=== PATIENT | male | born 1950 | race Caucasian/White ===

== ENCOUNTER 2018-01-30 22:47 | Emergency (ER) | payer MEDICARE, MEDICAID ==
[~2018-01-30] VITALS: Ht 177.8 cm; Wt 104.3 kg
[~2018-01-30 22:47] MED LIST: AMIO200T4 PO; ASPI-605 PO; ATOR20TA PO; BACL10TA PO; CARI350T27 PO; CLOP75TA15 PO; ETOMIDATE 2 MG/ML VIAL IV ONE; ROCURONIUM BROMIDE 50 MG/5 ML IV ONE
--- NOTE | 2018-01-30 22:57 | NUR ---
BAGGING IN PROGRESS
--- NOTE | 2018-01-30 22:57 | NUR ---
DR. Mosley IS AT THE BEDSIDE WITH RT. INTUBATING PT
--- NOTE | 2018-01-30 22:57 | NUR ---
PT BIB [facility] WITH A C/O AMS. PT WAS CHAIN WORLEY BREATHING, PALE PALOR, RESP APPROX 22. PT IS ON NRB @15L. PT IS SAT 99%. DR Mosley IS AT THE BEDSIDE.
--- NOTE | 2018-01-30 22:58 | NUR ---
PT PLACED ON THE VENT WITH THE FOLLOWING SETTINGS: AC16, TV500, FIO2 100%.
--- NOTE | 2018-01-30 22:58 | NUR ---
PT INTUBATED. 20 @ THE LIP & 7.5 ETT.
--- NOTE | 2018-01-30 22:58 | NUR ---
HEALTH SUPPORT SPECIALIST AT THE BEDSIDE NOT ABLE TO GET BLOOD.
[2018-01-30] MEDS ORDERED: PROPOFOL 100 ML ONE (22:59)
--- NOTE | 2018-01-30 23:00 | NUR ---
PROPOFOL STARTED AT 5 MCG/MIN.
--- NOTE | 2018-01-30 23:00 | NUR ---
CALLED NURSING SUP. FOR ICU BED
--- NOTE | 2018-01-30 23:05 | NUR ---
PT IS DESATING ON THE VENT. RT CALLED AND DR. Mosley IS AT THE BEDSIDE. PEEP INCREASED TO 5 BY .
[2018-01-30 23:10] VITALS: BP 91/41
--- NOTE | 2018-01-30 23:10 | NUR ---
EMBOSSING CLERK IS STILL AT THE BEDSIDE TRYING TO DRAW BLOOD.
--- NOTE | 2018-01-30 23:12 | NUR ---
PT HAS ARRHYTHMIA - WIDE COMPLEX. DR Mosley AT BEDSIDE. PT PLACED ON PADS AND CRASH CART AT THE BEDSIDE.
--- NOTE | 2018-01-30 23:12 | NUR ---
DR MIKE AT THE BEDSIDE.
[2018-01-30 23:15] VITALS: BP 97/61
--- NOTE | 2018-01-30 23:22 | NUR ---
CXR DONE AT THE BEDSIDE.
[2018-01-30] MEDS ORDERED: ETOMIDATE 2 MG/ML VIAL IV ONE (23:30)
[2018-01-30] MEDS ORDERED: ROCURONIUM BROMIDE 50 MG/5 ML IV ONE (23:30)
[2018-01-30] MEDS ORDERED: VANCOMYCIN 1 GM in IV D5W 250 ML IV ONE (23:30)
[2018-01-30] MEDS ORDERED: PIPERACILLIN /TAZOBACTAM 3.375 G in IV D5W 50 ML IV ONE (23:30)
--- NOTE | 2018-01-30 23:30 | NUR ---
CODING PT. 2331 - EPI AND BICARB GIVEN 2332 - PULSE CHECK - NO PULSE PEA 2332 - COMPRESSIONS RESUMED 2333 - DR Mosley CHARGING 200J 2334- PULSE CHECK - VFIB 2334 - CLEARED BED, 200J SHOCK DELIVERED BY DR. Mosley 2334 - COMPRESSIONS RESUMED 2334 - EPI GIVEN 2335 - BICARB GIVEN 2335 - CALCIUM CHLORIDE GIVEN 2336 - PULSE CHECK - PT HAS PULSE - ST VITAL SIGNS: BP - 105/75, HR - 121, RESP 19, O2 SAT 78%. (BAGGING IN PROGRESS) 2339 - PEA NOTED. CPR RESUMED. 234- PULSE CHECK - PEA 234 - COMPRESSIONS RESUMED 2342 - EPI GIVEN 2343 PULSE CHECK - NO PULSE DR. Mosley IS USING THE US TO CHECK CARDIAC FUNCTION. NO FUNCTION NOTED.
--- NOTE | 2018-01-30 23:30 | NUR ---
PT GOING BRADT AT 34. NO PULSE NOTED. CPR STARTED. DR. Mosley IS AT THE BEDSIDE.
--- NOTE | 2018-01-30 23:44 | NUR ---
TIME OF CALLED BY DR. Mosley
--- NOTE | 2018-01-30 23:54 | NUR ---
[facility] tree feller operator #[id number]. Per tree feller operator, it will be a administrative support assoc case #[id number]
--- NOTE | 2018-01-31 00:04 | NUR ---
richi cunha, presented case.
--- NOTE | 2018-01-31 00:32 | NUR ---
called KENDRA LEVY cousin, per Kendra she is on the [facility] and can not come in. She is trying to contact any other relatives Janina Otero cell p home
--- NOTE | 2018-01-31 00:43 | NUR ---
I had Janina, sister speak with SUN NAGY MD about pt passing. Per sister, she is the only family he has. Informed janina about the coroners case, per Sister they do not want an autopsy for religous reasons. I gave Janina the direct number to nursing sup. She will follow up with Nursing Sup in the morning.
--- NOTE | 2018-01-31 01:04 | NUR ---
DR Mosley CALLED TIME OF 0548
--- NOTE | 2018-01-31 01:30 | NUR ---
PT GOING TO THE [facility] WITH SECURITY AND ALBERTO CORONA
--- NOTE | 2018-01-31 02:04 | NUR ---
spoke with [place] from [employer] regarding patient. per [employer], the patient is eligible for earl and skin donation
[2018-01-31] MEDS ORDERED: SODIUM BICARBONATE SYR 50 MEQ/50 ML DISP.SYRIN IV ONE ×2 (04:00)
[2018-01-31] MEDS ORDERED: CALCIUM CHLORIDE 1,000 MG/10 ML DISP.SYRIN IV ONE (04:00)
[2018-01-31] MEDS ORDERED: EPINEPHRINE (1:10,000) SYRINGE 1 MG/10 ML DISP.SYRIN IV ONE ×3 (04:00)
[2018-01-31] MEDS ORDERED: PROPOFOL 100 ML IV PRN (05:30)
[2018-01-31] MEDS ORDERED: NS 0.9% IV PRN (07:00)
== END 2018-01-30 23:44 | disposition expired ==
LOC: ER 23:08
DX: T67.0XXA Heatstroke and sunstroke, initial encounter (principal); I49.8 Other specified cardiac arrhythmias; J96.90 Respiratory failure, unspecified, unspecified whether with hypoxia or hypercapnia; I10 Essential (primary) hypertension; E78.5 Hyperlipidemia, unspecified; K21.9 Gastro-esophageal reflux disease without esophagitis; Z95.1 Presence of aortocoronary bypass graft; Z79.82 Long term (current) use of aspirin; Z79.899 Other long term (current) drug therapy; Z95.0 Presence of cardiac pacemaker; X58.XXXA Exposure to other specified factors, initial encounter; Y93.89 Activity, other specified; Y92.89 Other specified places as the place of occurrence of the external cause; Y99.8 Other external cause status
CPT/HCPCS: 31500; 71045; 92950; 93005; 96361; 96374; 96375; 96376; 99285; A4606; J2543; J3490 ×2; J7030; J7060; Z7610